=== PATIENT | female | born 1940 | race Caucasian/White ===

== ENCOUNTER → 2022-04-26 | Outpatient (CLI) | payer MEDICARE ==
--- NOTE | 2022-04-26 17:39 | Diagnostic Imaging Report ---
INDICATION: Postmenopausal female COMPARISON: 11/30/2010 FINDINGS: AP Spine L2-L4: [BMD (g/cm2): 0.878] [T-Score: -2.7] [Z-Score: -0.7] [BMD Previous: 1.007] [BMD % Change: -12.8*] LT Hip Neck: [BMD (g/cm2): 0.622] [T-Score: -3.0] [Z-Score: -0.6] LT Hip Total: [BMD (g/cm2):0.725] [T-Score:-2.2] [Z-Score: 0.0] [BMD Previous: 0.814] [BMD % Change: -10.9*] RT Hip Neck: [BMD (g/cm2):0.647] [T-Score:-2.8] [Z-Score:-0.5] RT Hip Total: [BMD (g/cm2):0.702] [T-score:-2.4] [Z-Score:-0.2] [BMD Previous:0.852] [BMD % Change:-17.6*] *Indicates significant change from prior examination based on 95% confidence level. World Health Organization criteria for BMD interpretation classify patients as Normal (T-score at or above -1.0), Osteopenic (T-score between -1.0 and -2.5) or Osteoporotic (T-score at or below -2.5). LIMITATIONS AND MODIFICATION: Degenerative change in the lumbar spine likely falsely elevates bone density. FRACTURE RISK (FRAX SCORE): The ten year probability of (%): Major Osteoporotic Fracture: [NA] Hip Fracture: [NA] IMPRESSION: 1. Osteoporosis. 2. Bone mineral density has decreased by a statistically significant amount, as detailed above. 3. See below National Osteoporosis Foundation guidelines on when to potentially initiate pharmacologic therapy. Based on the National Osteoporosis Foundation Guidelines, pharmacologic treatment should be initiated in any of the following, unless clinical conditions suggest otherwise: * Any patient with prior fragility fracture of the hip or vertebrae. A spine fracture indicates 5X risk for subsequent spine fracture and 2X risk for subsequent hip fracture. * Osteoporosis (T-score <-2.5). * Postmenopausal women and men age 50 and older with low bone mass/osteopenia (T-score between -1.0 and -2.5) by DXA and 10-year major osteoporotic fracture greater than 20% or a 10-year probability of hip fracture greater than 3%. These fracture risks are supplied above in the FRAX score, if applicable. * Clinician judgement and/or patient preferences may indicate treatment for people with 10-year fracture probabilities above or below these levels. Dictated by: Dictated on workstation # [id number]
== END ==
LOC: RAD 13:29
PROVIDERS: ATTEND Pediatrics
DX: M81.0 Age-related osteoporosis without current pathological fracture (principal); Z78.0 Asymptomatic menopausal state
CPT/HCPCS: 77080

== ENCOUNTER → 2022-08-08 | Outpatient (CLI) | payer MEDICARE | LOC: CARD 13:39 | PROVIDERS: ATTEND Family Medicine | DX: I10 Essential (primary) hypertension (principal); I49.9 Cardiac arrhythmia, unspecified | CPT/HCPCS: 93005 ==

== ENCOUNTER → 2022-11-25 | Outpatient (CLI) | payer MEDICARE | LOC: CARD 13:30 | PROVIDERS: ATTEND Internal Medicine Cardiovascular Disease | DX: E04.1 Nontoxic single thyroid nodule (principal) | CPT/HCPCS: 93306 ==

== ENCOUNTER 2022-11-26 12:05 | Emergency (ER) | payer MEDICARE ==
[~2022-11-26] VITALS: Ht 162.5 cm; Wt 68.0 kg
[2022-11-26 12:44] LABS: BASOPHILS # (AUTO) 0.1 10^3/uL (0.0-0.1); BASOPHILS % (AUTO) 1 % (0-10); EOSINOPHILS # (AUTO) 0.2 10^3/uL (0.0-0.3); EOSINOPHILS % (AUTO) 2 % (0-10); HEMATOCRIT 38 % (35-52); HEMOGLOBIN 12.2 g/dL (11.5-16.0); LYMPHOCYTES # (AUTO) 2.3 10^3/uL (1.0-4.0); LYMPHOCYTES % (AUTO) 30 % (12-44); MEAN CORPUSCULAR HEMOGLOBIN 30 pg (25-34); MEAN CORPUSCULAR HGB CONC 32 g/dL (32-36); MEAN CORPUSCULAR VOLUME 93 fL (80-99); MEAN PLATELET VOLUME 9.3 fL (9.0-12.2); MONOCYTES # (AUTO) 0.7 10^3/uL (0.0-1.0); MONOCYTES % (AUTO) 9 % (0-12); NEUTROPHILS # (AUTO) 4.2 10^3/uL (1.8-7.8); NEUTROPHILS % (AUTO) 57 % (42-75); PLATELET COUNT 294 10^3/uL (130-400); WHITE BLOOD COUNT 7.4 10^3/uL (4.3-11.0)
--- NOTE | 2022-11-26 12:46 | ED Neurological Problem ---
General Chief Complaint: Neurological Problems Stated Complaint: VISION LOSS Nursing Triage Note: PT AMB TO [facility] WITH CC OF BLURRED VISION IN R EYE X APPROX 1 HR. PT DENIES PAIN. PT DENIES TINGLING/NUMBNES IN R EXTREMITIES. PT A&OX4 Source: patient Exam Limitations: no limitations History of Present Illness Date Seen by Provider: Nov 26, 2022 Time Seen by Provider: 12:10 Initial Comments 82-year-old female with no prior history of stroke coming in due to right-sided blurry vision. Started roughly 11 AM today, tried to call her doctor, was unable to get a hold of them, so came to the ER. Denies any numbness, tingling, weakness, headache, voice changes, chest pain, shortness of breath, fever, chills, or any other concerns. She does wear glasses, but nothing like this is ever happened before. She does still have vision, she states that she has blurrier out of the right eye. Otherwise denying any other acute complaints. Allergies and Home Medications Allergies Coded Allergies: No Known Drug Allergies (Unverified , 11/26/22) Patient Home Medication List Home Medication List Reviewed: Yes Review of Systems Review of Systems Constitutional: No fever Eyes: See HPI Ears, Nose, Mouth, Throat: no symptoms reported Respiratory: no symptoms reported Cardiovascular: no symptoms reported Gastrointestinal: no symptoms reported Genitourinary: no symptoms reported Musculoskeletal: no symptoms reported Skin: no symptoms reported Psychiatric/Neurological: See HPI Past Seyliil-Lnvuvy-Qvnfkm Hx Patient Social History Tobacco Use?: No Substance use?: No Alcohol Use?: No Past Medical History Surgery/Hospitalization HX: ARRHYTHMA, Physical Exam Vital Signs Vital Signs - First Documented 11/26/22 12:12 Temp 36.8 Pulse 87 Resp 16 B/P (MAP) 191/95 (127) Pulse Ox 95 O2 Delivery Room Air Capillary Refill : Less Than 3 Seconds Height, Weight, BMI Height: '" Weight: lbs. oz. kg; 25.00 BMI Method: General Appearance: WD/WN, no apparent distress HEENT: PERRL/EOMI, normal ENT inspection, pharynx normal Neck: non-tender, full range of motion, supple, normal inspection Respiratory: chest non-tender, lungs clear, normal breath sounds, no respiratory distress, no accessory muscle use Cardiovascular: regular rate, rhythm, no edema Gastrointestinal: normal bowel sounds, non tender, soft; No distended, No guarding, No rebound Back: normal inspection, no CVA tenderness, no vertebral tenderness Extremities: normal range of motion, non-tender, normal inspection, no pedal edema, no calf tenderness, normal capillary refill Neurologic/Psychiatric: no motor/sensory deficits, alert, normal mood/affect, oriented x 3, other (20/30 visual acuity bilaterally as well as in the left eye, right eye alone 20/40 vision, extraocular movements intact, decreased peripheral vision with the right eye laterally and superiorly) Crainal Nerves: normal hearing, normal speech, PERRL Coordination/Gait: normal finger to nose, normal gait Motor/Sensory: no motor deficit, no sensory deficit, no pronator drift Skin: normal color, warm/dry Stroke Onset of Symptoms Date of Onset of Symptoms: Nov 26, 2022 Time of Symptom Onset: 11:00 Onset of Symptoms: Yes NIH Stroke Scale Assessment Select: Initial Level of Consciousness: 0=Alert (0), Level of Consciousness- Questions: 0=Answers both month/age (0), LOC Commands: 0=Performs both tasks (0), Gaze: Normal (0), Visual Boggs: 1=Partial hemianopia (1), Facial Movement (Facial Paresis): 0=Normal symmetrical mnt (0), Motor Function-Arms Right: 0=No drift (0), Motor Function-Arms Left: 0=No drift (0), Motor Function-Legs Right: 0=No drift (0), Motor Function-Legs Left: 0=No drift (0), Limb Ataxia: 0=Absent (0), Sensory: 0=Normal:no loss (0), Best Language: 0=No aphasia (0), Dysarthria: 0=Normal (0), Extinction & Inattention: 0=No abnormality (0), Total: 1 IV - TPa Received IV - TPa Procedure Performed?: No Progress/Results/Core Measures Results/Orders Lab Results Laboratory Tests Test 11/26/22 12:36 11/26/22 12:50 Range/Units White Blood Count 7.4 4.3-11.0 10^3/uL Red Blood Count 4.08 3.80-5.11 10^6/uL Hemoglobin 12.2 11.5-16.0 g/dL Hematocrit 38 35-52 % Mean Corpuscular Volume 93 80-99 fL Mean Corpuscular Hemoglobin 30 25-34 pg Mean Corpuscular Hemoglobin Concent 32 32-36 g/dL Red Cell Distribution Width 13.8 10.0-14.5 % Platelet Count 294 130-400 10^3/uL Mean Platelet Volume 9.3 9.0-12.2 fL Immature Granulocyte % (Auto) 1 % Neutrophils (%) (Auto) 57 42-75 % Lymphocytes (%) (Auto) 30 12-44 % Monocytes (%) (Auto) 9 0-12 % Eosinophils (%) (Auto) 2 0-10 % Basophils (%) (Auto) 1 0-10 % Neutrophils # (Auto) 4.2 1.8-7.8 10^3/uL Lymphocytes # (Auto) 2.3 1.0-4.0 10^3/uL Monocytes # (Auto) 0.7 0.0-1.0 10^3/uL Eosinophils # (Auto) 0.2 0.0-0.3 10^3/uL Basophils # (Auto) 0.1 0.0-0.1 10^3/uL Immature Granulocyte # (Auto) 0.0 0.0-0.1 10^3/uL Prothrombin Time 13.1 12.2-14.7 SEC INR Comment 1.0 0.8-1.4 Activated Partial Thromboplast Time 35 24-35 SEC Sodium Level 142 135-145 MMOL/L Potassium Level 4.1 3.6-5.0 MMOL/L Chloride Level 109 H 98-107 MMOL/L Carbon Dioxide Level 21 21-32 MMOL/L Anion Gap 12 5-14 MMOL/L Blood Urea Nitrogen 15 7-18 MG/DL Creatinine 1.04 0.60-1.30 MG/DL Estimat Glomerular Filtration Rate 53 BUN/Creatinine Ratio 14 Glucose Level 110 H 70-105 MG/DL Calcium Level 9.5 8.5-10.1 MG/DL Corrected Calcium 9.3 8.5-10.1 MG/DL Total Bilirubin 0.5 0.1-1.0 MG/DL Aspartate Amino Transf (AST/SGOT) 14 5-34 U/L Alanine Aminotransferase (ALT/SGPT) 11 0-55 U/L Alkaline Phosphatase 68 40-136 U/L Troponin I < 0.028 <0.028 NG/ML Total Protein 7.3 6.4-8.2 GM/DL Albumin 4.2 3.2-4.5 GM/DL Glucometer 108 70-110 MG/DL My Orders Orders - ROSA HERNANDEZ MD Cbc And Automated Diff (11/26/22 12:30) Protime With Inr (11/26/22 12:30) Partial Thromboplastin Time (11/26/22 12:30) Comprehensive Metabolic Panel (11/26/22 12:30) Troponin I [place] (11/26/22 12:30) Chest 1 View, Ap/Pa Only (11/26/22 12:30) Ekg Tracing (11/26/22:) Accucheck Stat ONCE (11/26/22:) Ed Iv/Invasive Line Start (11/26/22 12:30) Vital Signs Stroke Patient Q15M (11/26/22 12:30) Ct Head Wo-R/O Stroke (11/26/22 12:30) O2 (11/26/22 12:30) Monitor-Rhythm Ecg Trace Only (11/26/22 12:30) Dysphagia Screening Tool Q10MX1 (11/26/22 12:30) Vital Signs/I&O 11/26/22 12:12 Temp 36.8 Pulse 87 Resp 16 B/P (MAP) 191/95 (127) Pulse Ox 95 O2 Delivery Room Air Blood Pressure Mean: 127 Progress Progress Note : Progress Note 82-year-old female with above history coming in due to right-sided blurry vision. ABCs were intact and vitals were stable on presentation. NIH technically was 1 for some decreased vision in the peripheral boggs just in the right eye. She does not have complete vision loss, its mostly just blurry in that area. She is 20/40 on the right, 20/30 on the left which is honestly reassuring. We went ahead and did a stroke work-up, CT head negative for stroke, I did discuss the case with the radiologist personally. EKG with no acute ischemic changes, she is in sinus rhythm with PVCs which she is getting worked up by her nurse technician. Electrolytes unremarkable, normal creatinine, normal white blood cell count, negative troponin. I contacted the stroke neurologist at , Dr. Rolle, and he agrees that this does not sound like a stroke. He discussed that likely with a stroke he would expect the hemianopsia to be in both eyes, and would expect truly full vision loss rather than just blurry vision. Discussed that there could be may be a partial retinal artery occlusion, but he would not recommend any type of TPA given the risk associated with it, especially given how mild her symptoms are. I did a [id number] ultrasound, potentially see vitreous detachment. I do not see any obvious retinal detachment. I discussed the case with the ditching machine operator in [facility], Dr. Drummond. He will see her in his clinic here in a couple hours for a dilated exam, and we will get her where she needs to go based on what he sees on exam. I believe she is otherwise stable for discharge with outpatient follow-up. She was sent home with strict return precautions. Initial ECG Impression Date: Nov 26, 2022 Initial ECG Impression Time: 12:10 Initial ECG Rate: 1256 Initial ECG Rhythm: Normal Sinus Comment Narrow QRS, no STEMI, frequent PVCs in bigeminy Diagnostic Imaging Diagonstic Imaging: Xray (chest), CT (head) Comments NAME: LESLY FOX [facility] REC#: [id number] PT STATUS: REG ER : 1940 PHYSICIAN: ROSA HERNANDEZ MD ADMIT DATE: 11/26/22/ER Draft Date of Exam:11/26/22 CT HEAD WO-R/O STROKE EXAMINATION: CT head without contrast. TECHNIQUE: Multiple contiguous axial images were obtained through the brain without the use of intravenous contrast. All CT scans use one or more of the following dose optimizing techniques: automated exposure control, MA and/or KvP adjustment based on patient size and exam type or iterative reconstruction. HISTORY: Vision loss. COMPARISON: None available. FINDINGS: The santos-white matter differentiation is normal. No mass effect or midline shift. The ventricles are normal in size and configuration. Basilar cisterns are patent. There are no intra or extra-axial fluid collections. There is no intracranial hemorrhage. The orbits are normal. Paranasal sinuses are normal. Mastoid air cells are clear. No soft tissue abnormality is seen. No osseus lesions or fractures are seen. IMPRESSION: No acute intracranial abnormality. Findings were called to Dr. Casey Hernandez by Dr. De Oliveira on 11/26/2022 at 12:47 PM. Dictated on workstation # [id number] Dict: 11/26/22 1245 Trans: 11/26/22 1253 SIENNA [id number] Interpreted by: EVITA DE OLIVEIRA MD Electronically signed by: NAME: LESLY FOX REC#: [id number] PT STATUS: REG ER : 1940 PHYSICIAN: ROSA HERNANDEZ MD ADMIT DATE: 11/26/22/ER Draft Date of Exam:11/26/22 CHEST 1 VIEW, AP/PA ONLY EXAMINATION: Chest, 1 view. HISTORY: Stroke alert. COMPARISON: None available. FINDINGS: The lungs are clear without edema or pneumonia. No pleural effusion or pneumothorax. Heart size is normal. The patient is rotated to the right. IMPRESSION: Clear lungs. Dictated on workstation # [id number] Dict: 11/26/22 1249 Trans: 11/26/22 1255 SIENNA [id number] Interpreted by: EVITA DE OLIVEIRA MD Electronically signed by: Departure Impression Primary Impression: Blurry vision, right eye Disposition: 01 HOME, SELF-CARE Condition: Stable Departure-Patient Inst. Decision time for Depature: 13:50 Referrals: [facility] [place] (PCP/Family) Primary Care Physician SOFIE DRUMMOND OD Add. Discharge Instructions: We think it is unlikely you have had any type of stroke. We think the issue is likely in the eye itself. You will see the eye doctor, Dr. Drummond this afternoon. He will be in touch with you. His office number is in this paperwork in case he does not reach out by [facility]. [place] to the ER if you have any weakness or you cannot move 1 side of your body, numbness we cannot feel 1 side of your body, or worst headache of your life. Also come back if you have any other significant concerns. Work/School Note: Family Work Note Patient Received Medical Care In the Emergency Department On: Nov 26, 2022 Patient Will Be Able to Return to Work/School On: Nov 27, 2022 ROSA HERNANDEZ MD Nov 26, 2022 12:46
--- NOTE | 2022-11-26 12:54 | Diagnostic Imaging Report ---
EXAMINATION: CT head without contrast. TECHNIQUE: Multiple contiguous axial images were obtained through the brain without the use of intravenous contrast. All CT scans use one or more of the following dose optimizing techniques: automated exposure control, MA and/or KvP adjustment based on patient size and exam type or iterative reconstruction. HISTORY: Vision loss. COMPARISON: None available. FINDINGS: The santos-white matter differentiation is normal. No mass effect or midline shift. The ventricles are normal in size and configuration. Basilar cisterns are patent. There are no intra or extra-axial fluid collections. There is no intracranial hemorrhage. The orbits are normal. Paranasal sinuses are normal. Mastoid air cells are clear. No soft tissue abnormality is seen. No osseus lesions or fractures are seen. IMPRESSION: No acute intracranial abnormality. Findings were called to Dr. Casey Alvarez by Dr. Bronson on 11/26/2022 at 12:47 PM. Dictated by: Dictated on workstation # [id number]
--- NOTE | 2022-11-26 12:55 | Diagnostic Imaging Report ---
EXAMINATION: Chest, 1 view. HISTORY: Stroke alert. COMPARISON: None available. FINDINGS: The lungs are clear without edema or pneumonia. No pleural effusion or pneumothorax. Heart size is normal. The patient is rotated to the right. IMPRESSION: Clear lungs. Dictated by: Dictated on workstation # [id number]
[2022-11-26 12:57] LABS: ALBUMIN 4.2 GM/DL (3.2-4.5); CHLORIDE 109 MMOL/L (98-107); POTASSIUM 4.1 MMOL/L (3.6-5.0); PROTHROMBIN TIME PATIENT 13.1 SEC (12.2-14.7); SODIUM 142 MMOL/L (135-145)
[2022-11-26 12:58] LABS: CALCIUM 9.5 MG/DL (8.5-10.1)
[2022-11-26 12:59] LABS: GLUCOSE 110 MG/DL (70-105); TOTAL PROTEIN 7.3 GM/DL (6.4-8.2)
[2022-11-26 13:01] LABS: BILIRUBIN,TOTAL 0.5 MG/DL (0.1-1.0); CARBON DIOXIDE 21 MMOL/L (21-32)
[2022-11-26 13:03] LABS: ALKALINE PHOSPHATASE 68 U/L (40-136); CREATININE SERUM 1.04 MG/DL (0.60-1.30); GFR ESTIMATED 53
[2022-11-26 13:04] LABS: BUN/CREATININE RATIO 14
[2022-11-26 13:06] LABS: ALANINE AMINOTRANSFERASE 11 U/L (0-55)
[2022-11-26 13:53] VITALS: BP 140/73
== END 2022-11-26 13:55 | disposition home or self-care (01) ==
LOC: EDUNIT# 12:05 → ER 12:06
DX: H53.8 Other visual disturbances (principal)
CPT/HCPCS: 36415; 70450; 71045; 80053; 82947; 84484; 85025; 85610; 85730; 93005; 93041

== ENCOUNTER → 2022-11-28 | Outpatient (CLI) | payer MEDICARE ==
--- NOTE | 2022-11-28 19:19 | Diagnostic Imaging Report ---
PROCEDURE: US Thyroid. TECHNIQUE: Multiple real-time grayscale images were obtained of the thyroid in various projections. INDICATION: Nontoxic single thyroid nodule. COMPARISON: None available. FINDINGS: The right lobe of the thyroid gland measures 3.5 x 1.6 x 1.8 cm. A solid isoechoic nodule with hypoechoic halo with smooth circumscribed margins is present within the mid right thyroid lobe measuring 1.9 x 1.4 x 1.3 cm. No internal calcifications. The left lobe of the thyroid gland measures 3.2 x 1.3 x 1.2 cm. No left thyroid nodule. The isthmus is unremarkable. IMPRESSION: 1.9 cm TI-RADS 3 nodule within the right thyroid lobe. Recommend a follow-up ultrasound of the thyroid gland in one year to ensure stability. Dictated by: Dictated on workstation # [id number]
== END ==
LOC: RAD 11:00
PROVIDERS: ATTEND Internal Medicine Cardiovascular Disease
DX: E04.2 Nontoxic multinodular goiter (principal)
CPT/HCPCS: 76536